=== PATIENT | male | born 2000 | race Caucasian/White ===

== ENCOUNTER 2024-10-03 22:57 | Emergency (ER) | payer BC ==
[2024-10-04] MEDS: Ketorolac 30 MG/ML SDV IM ONE (02:31)
[2024-10-04] MEDS: Amoxicillin/Clavulanate K 875-125 MG Tab PO ONE (02:31)
== END 2024-10-04 02:41 | disposition home or self-care (01) ==
LOC: JD.ED 22:57
DX: H66.92 Otitis media, unspecified, left ear (principal); J06.9 Acute upper respiratory infection, unspecified; Z79.899 Other long term (current) drug therapy
CPT/HCPCS: 96372; 99283; A9270; J1885